=== PATIENT | male | born 2000 | race Caucasian/White ===

== ENCOUNTER 2019-06-14 13:11 | Emergency (ER) | payer OTHER, SELFPAY ==
[2019-06-14 13:18] VITALS: BP 134/57; PULSE 58; RESP 20; TEMP 36.7; O2SAT 100
--- NOTE | 2019-06-14 13:40 | ED.WOUNDLAC ---
HPI - Wound/Laceration General Chief Complaint: Extremity Injury, Upper Stated Complaint: right ring finger injury Time Seen by Provider: 06/14/19 13:28 Source: patient and RN notes reviewed Mode of arrival: ambulatory Limitations: no limitations History of Present Illness HPI narrative: 18 year old male accompanied by boss presents to express care with complaints of laceration to his distal palmar ring finger which occurred within the last 30 minutes at work. Patient states that he cut his finger on wire cord on machinery at work when he was cleaning out metal tray, had gloves on at time of injury Patient denies any tingling or numbness to his right ring finger or any loss of motion to his finger is able to bend distal tip of his right ring finger without difficulty, active bleeding noted on arrival to clinic but controlled with pressure to site.Patient states that his tetanus shot is up to date. Onset (ago): minute(s) (30) Location: other (right distal layne ring finger) Extremity Location: Right: hand (right distal layne ring finger) Place: work Patient tetanus UTD: Yes Context: accidental Associated symptoms: pain Treatments prior to arrival: bandage Related Data Home Medications Medication Instructions Recorded Confirmed cetirizine [Zyrtec] 10 mg PO DAILY 06/14/19 06/14/19 fluoxetine 10 mg PO DAILY 06/14/19 06/14/19 lansoprazole [Prevacid] 15 mg PO DAILY 06/14/19 06/14/19 Allergies Allergy/AdvReac Type Severity Reaction Status Date / Time No Known Allergies Allergy Verified 06/14/19 13:37 Review of Systems Review of Systems: Narrative: CONSTITUTIONAL: Denies fever, chills, or sweats. EYES: Denies visual changes, redness, or discharge. ENT: Denies rhinorrhea, congestion, sore throat, or otalgia. CARDIOVASCULAR: Denies chest pain, palpitations, or edema. RESPIRATORY: Denies cough or dyspnea. GASTROINTESTINAL: Denies abdominal pain, nausea, vomiting, or diarrhea. GENITOURINARY: Denies dysuria or hematuria. SKIN: laceration injury to distal right palmar region of ring finger MUSCULOSKELETAL: Denies back pain, joint pain, or myalgia. NEUROLOGIC: Denies headache, numbness, or weakness. PSYCHIATRIC: Denies anxiety or depression. All systems reviewed & are unremarkable except as noted in HPI and below PMFSH Past Medical History Medical History (Updated 06/16/19 @ 12:18 by Concepcion Wayne NP) Anxiety GERD (gastroesophageal reflux disease) Seasonal allergies Social History Social History (Updated 06/16/19 @ 12:12 by Concepcion Wayne NP) Smoking status: Never smoker Living arrangements: with family Gender identity (if verbalized by the patient): Male Comments At time of signature, agree with nursing past medical, social history. There is no relevant family history pertinent to the presenting complaint Exam Narrative: Exam Narrative: GENERAL: Well-appearing, well-nourished, and in no acute distress. HEAD: Normocephalic, atraumatic. EYES: PERRLA and EOMI. ENT: Nares clear, no rhinorrhea or epistaxis. Mucous membranes moist. NECK: Supple. CHEST: Clear to auscultation. No respiratory distress. HEART: Regular rate and rhythm. No murmur heard. Normal peripheral pulses. ABDOMEN: Soft, nontender, nondistended, normal active bowel sounds. EXTREMITIES: Normal range of motion. No edema. SKIN: Warm, laceration to right distal ring finger palmar region 2.5cm flap type of laceration, movement sensation and circulation intact to right index finger. NEURO: No focal deficits. Alert and oriented x3. Course Vital Signs Vital signs: Vital Signs Temperature 36.7 C 06/14/19 13:18 Pulse Rate 58 L 06/14/19 13:18 Respiratory Rate 06/14/19 13:18 Blood Pressure 134/57 L 06/14/19 13:18 Pulse Oximetry 100 06/14/19 13:18 Temperature 36.7 C 06/14/19 13:18 Pulse Rate 58 L 06/14/19 13:18 Respiratory Rate 06/14/19 13:18 Blood Pressure 134/57 L 06/14/19 13:18 Pulse Oximetry 100 06/14/19 1
== END 2019-06-14 14:30 | disposition home or self-care (01) ==
PROVIDERS: Emergency Provider Registered Nurse
DX: S61.214A Laceration without foreign body of right ring finger without damage to nail, initial encounter (principal); X58.XXXA Exposure to other specified factors, initial encounter; Y99.0 Civilian activity done for income or pay; K21.9 Gastro-esophageal reflux disease without esophagitis; F41.9 Anxiety disorder, unspecified
CPT/HCPCS: 12001; 99213; G0463